=== PATIENT | female | born 1950 | race Caucasian/White ===

== ENCOUNTER 2018-08-31 11:42 | Emergency (ER) | payer MEDICARE ==
[2018-08-31] MEDS ORDERED: Penicillin VK TAB* 250 MG PO ONE (12:25)
[2018-08-31] MEDS ORDERED: Ketorolac INJ* 60 MG/2 ML VIAL IM ONE (12:26)
--- NOTE | 2018-08-31 12:28 | ED ---
Throat Pain/Nasal Congestion - HPI Summary HPI Summary: The patient is a 67 y/o F presenting to [facility] with a chief complaint of upper left dental pain starting a few weeks ago with recent worsening. She reports that she has an upcoming appointment with her dentist in three days, but the pain has been worsening. There is a filling in the area of pain that is still intact. Currently, the pain is rated 7-8/10 in severity. She denies trismus, swelling of tongue or lips, nausea, vomiting, and headaches. Hx of DM, HTN, OH. FHx of HTN, DM. Former smoker, occasional EtOH, no substance use. - History of Current Complaint Chief Complaint: EDDentalPain Time Seen by Provider: 08/31/18 12:19 Hx Obtained From: Patient Onset/Duration: Gradual Onset, Lasting Weeks, Still Present Severity: Moderate Cough: None - Allergies/Home Medications Allergies/Adverse Reactions: Allergies Allergy/AdvReac Type Severity Reaction Status Date / Time No Known Allergies Allergy Verified 08/31/18 11:50 PMH/Surg Hx/FS Hx/Imm Hx Endocrine/Hematology History: Reports: Hx Diabetes Cardiovascular History: Reports: Hx Hypertension, Hx Myocardial Infarction Denies: Hx Hypercholesterolemia - Surgical History Surgical History: None Surgery Procedure, Year, and Place: none Infectious Disease History: No Infectious Disease History: Denies: Traveled Outside the [place] in Last 30 Days - Family History Known Family History: Positive: Hypertension, Diabetes - Social History Alcohol Use: Occasionally Hx Substance Use: No Substance Use Type: Reports: None Hx Tobacco Use: Yes Smoking Status (MU): Former Smoker Review of Systems Positive: Dental Pain - left upper toothache, Other - NEGATIVE: trismus, swelling of tongue or lips Negative: Vomiting, Nausea Negative: Headache All Other Systems Reviewed And Are Negative: Yes Physical Exam - Summary Physical Exam Summary: VITAL SIGNS: Reviewed. GENERAL: Patient is a well-developed and nourished female who is lying comfortable in the stretcher. Patient is not in any acute respiratory distress. HEAD AND FACE: No signs of trauma. No ecchymosis, hematomas or skull depressions. No sinus tenderness. EYES: PERRLA, EOMI x 2, No injected conjunctiva, no nystagmus. EARS: Hearing grossly intact. Ear canals and tympanic membranes are within normal limits. MOUTH: Fracture of tooth 14 with tenderness at palpation. No abscess. Oropharynx otherwise within normal limits. NECK: Supple, trachea is midline, no adenopathy, no JVD, no carotid bruit, no c- spine tenderness, neck with full ROM. CHEST: Symmetric, no tenderness at palpation LUNGS: Clear to auscultation bilaterally. No wheezing or crackles. CVS: Regular rate and rhythm, S1 and S2 present, no murmurs or gallops appreciated. ABDOMEN: Soft, non-tender. No signs of distention. No rebound, no guarding, and no masses palpated. Bowel sounds are normal. EXTREMITIES: FROM in all major joints, no edema, no cyanosis or clubbing. NEURO: Alert and oriented x 3. No acute neurological deficits. Speech is normal and follows commands. SKIN: Dry and warm. Triage Information Reviewed: Yes Vital Signs On Initial Exam: Initial Vitals Temp Pulse Resp BP Pulse Ox 97.5 F 87 16 144/77 95 08/31/18 11:47 08/31/18 11:47 08/31/18 11:47 08/31/18 11:47 08/31/18 11:47 Vital Signs Reviewed: Yes Diagnostics - Vital Signs Vital Signs Temp Pulse Resp BP Pulse Ox 08/31/18 11:47 97.5 F 87 16 144/77 95 - Laboratory Lab Statement: Any lab studies that have been ordered have been reviewed, and results considered in the medical decision making process. Re-Evaluation - Re-Evaluation First Eval Re-Evaluation Time: 12:40 Change: Improved Comment: Her pain has improved after medication. We discussed discharge plan to keep dentist appt. EENT Course/Dx - Course Assessment/Plan: The patient is a 67 y/o F presenting to [facility] with a chief complaint of upper left dental pain starting a few weeks ago with recent worsening. She reports that she has an upcoming appointment with her dentist in three days, but the pain has been worsening. There is a filling in the area of pain that is still intact. Currently, the pain is rated 7-8/10 in severity. She denies trismus, swelling of tongue or lips, nausea, vomiting, and headaches. Hx of DM, HTN, OH. FHx of HTN, DM. Former smoker, occasional EtOH, no substance use. The patient was given Toradol for pain and penicillin for dental infection. The patient has an appointment with the dentist on September 04. She will be discharged home with follow-up with the dentist. Patient was instructed to return to the emergency department if she develops any trismus, she is unable to open her mouth, or any airway difficulties. She understands and agrees. She is hemodynamically stable alert and oriented 3. - Diagnoses Provider Diagnoses: Toothache Discharge - Sign-Out/Discharge Documenting (check all that apply): Patient Departure - Patient will be discharged home. Patient Received Moderate/Deep Sedation with Procedure: No - Discharge Plan Condition: Good Disposition: HOME Prescriptions: HYDROcodone/ACETAMIN 5-325 MG* [[place] 5-325 TAB*] 1 tab PO Q6H PRN #10 tab MDD 4 PRN Reason: Pain Penicillin VK TAB* [Penicillin VK 250 mg Tab*] 500 mg PO QID #40 tab Patient Education Materials: Toothache (ED) Referrals: Vandana Rabago MD [Primary Care Provider] - 3 Days Additional Instructions: Please take medications as prescribed. Follow up with your dentist on Tuesday at your scheduled appointment. RETURN TO THE EMERGENCY DEPARTMENT FOR ANY NEW OR WORSENING SYMPTOMS. - Billing Disposition and Condition Condition: GOOD Disposition: Home - Attestation Statements Document Initiated by Ezequiel: Yes Documenting Scribe: Taylor Buenrostro Provider For Whom Ezequiel is Documenting (Include Credential): Dr. Wilian De Guzman MD Scribe Attestation: Taylor Duran scribed for Dr. Wilian De Guzman MD on 09/01/18 at 2052. Scribe Documentation Reviewed: Yes Provider Attestation: The documentation as recorded by the Taylor damon accurately reflects the service I personally performed and the decisions made by me, Dr. Wilian De Guzman MD Status of Scribe Document: Viewed
[2018-08-31 12:43] VITALS: BP 134/70
== END 2018-08-31 12:41 | disposition home or self-care (01) ==
LOC: ED 11:42
DX: K08.89 Other specified disorders of teeth and supporting structures (principal); E11.9 Type 2 diabetes mellitus without complications; Z87.891 Personal history of nicotine dependence
CPT/HCPCS: 96372; 99282; A9270-GY; J1885

== ENCOUNTER 2023-08-11 21:15 | Inpatient (IN) ==
[2023-08-11 23:21] LABS: ABS Eosinophils 0.2 10^3/uL (0.0-0.5); ABS Lymphocytes 1.8 10^3/uL (1.0-4.8); ABS Monocytes 0.8 10^3/uL (0.0-0.9); ABS Neutrophils 8.6 10^3/uL (1.5-7.6); Eosinophil % 1.5 %; Hematocrit 35.9 % (35-45); Lymphocyte % 15.8 %; Mean Corpuscular Hemoglobin 28.5 pg (27-33); Mean Corpuscular Hgb Conc 33.4 g/dL (31-36); Mean Corpuscular Volume 85.2 fL (80-97); Platelet Count 287 10^3/uL (150-450); Red Blood Count 4.21 10^6/uL (3.63-4.92); Red Cell Distribution Width 13.8 % (12-17); White Blood Count 11.4 10^3/uL (3.8-11.8)
[2023-08-12 00:14] LABS: ALT 28 U/L (7-52); AST 20 U/L (13-39); Albumin 3.7 g/dL (3.2-5.2); Albumin/Globulin Ratio 1.1 (1-3); Alkaline Phosphatase 92 U/L (35-149); Anion Gap 8 mmol/L (2-16); Blood Urea Nitrogen 18 mg/dL (6-24); C Reactive Protein 276.74 mg/L (<8.01); CO2 Carbon Dioxide 26 mmol/L (22-32); Calcium 9.3 mg/dL (8.6-10.3); Chloride 97 mmol/L (101-111); Creatinine, Serum 0.71 mg/dL (0.51-0.95); Globulin 3.4 g/dL (2-4); Glucose 262 mg/dL (70-100); Lipase < 10 U/L (11.0-82.0); Potassium 4.1 mmol/L (3.5-5.0); Sodium 131 mmol/L (135-145); Total Bilirubin 0.3 mg/dL (0.2-1.0); Total Protein 7.1 g/dL (6.4-8.9); eGFR CKD-EPI 90.8 (>60)
[2023-08-12 00:20] LABS: Urine Appearance Clear; Urine Bilirubin Negative (Negative); Urine Blood Negative (Negative); Urine Color Yellow; Urine Glucose 3+ (>=300 mg/dL) (Negative); Urine Ketones 2+ (Negative); Urine Nitrite Negative (Negative); Urine Protein Trace (Negative); Urine Specific Gravity 1.022 (1.002-1.030); Urine Urobilinogen Negative (Negative)
[2023-08-12] MEDS: NS 0.9% 1000 ml BAG 1,000 ML IV ONE (00:37)
[2023-08-12 00:44] LABS: Urine Bacteria Absent /HPF (Absent); Urine Red Blood Cell Trace(0-2/hpf) /HPF (0-Trace); Urine Squamous Epithelial Cell Present /HPF (Absent); Urine White Blood Cell 1+(6-10/hpf) /HPF (0-Trace)
[2023-08-12] MEDS: Iodixanol (CONTRAST) 320 MG/ML 100 ML SDV IV ONE (00:53)
[2023-08-12] MEDS ORDERED: Dextrose 50% Syringe 50 ml 25 GM/50 ML SYRINGE IV PUSH PRN (02:18)
[2023-08-12] MEDS ORDERED: Albuterol HFA INHALER 8 gm MDI INH PRN (02:19)
[2023-08-12] MEDS: Piperacillin/Tazobac 3.375 BAG 3.375 GM/100 ML BAG IV ONE (02:20)
[2023-08-12] MEDS ORDERED: Zosyn per Pharmacy NOTE FOLLOW UP SCH (03:00)
[2023-08-12] MEDS: Insulin GLARGINE 100 un/ml 10 ml VIAL SUBCUT ONE ×2 (03:32→04:04)
[2023-08-12] MEDS: ZOSYN 3.375 GM Q8H per EXTENDED INFUSION IV SCH ×2 (06:12→17:57)
[2023-08-12 06:24] LABS: ABS Basophils 0.1 10^3/uL (0.0-0.1); ABS Eosinophils 0.2 10^3/uL (0.0-0.5); ABS Lymphocytes 1.5 10^3/uL (1.0-4.8); ABS Monocytes 0.8 10^3/uL (0.0-0.9); ABS Neutrophils 8.8 10^3/uL (1.5-7.6); Eosinophil % 1.5 %; Hematocrit 32.7 % (35-45); Hemoglobin 10.9 g/dL (11.5-14.3); Lymphocyte % 12.9 %; Mean Corpuscular Hemoglobin 28.3 pg (27-33); Mean Corpuscular Hgb Conc 33.4 g/dL (31-36); Mean Corpuscular Volume 84.8 fL (80-97); Mean Platelet Volume 8.3 fL (7.5-11.2); Platelet Count 279 10^3/uL (150-450); Red Blood Count 3.85 10^6/uL (3.63-4.92); Red Cell Distribution Width 13.7 % (12-17); White Blood Count 11.4 10^3/uL (3.8-11.8)
[2023-08-12 07:08] LABS: Albumin 3.3 g/dL (3.2-5.2); Albumin/Globulin Ratio 1.1 (1-3); Calcium 8.4 mg/dL (8.6-10.3); Creatinine, Serum 0.67 mg/dL (0.51-0.95); Globulin 3.1 g/dL (2-4); Potassium 4.3 mmol/L (3.5-5.0); Total Bilirubin 0.3 mg/dL (0.2-1.0); Total Protein 6.4 g/dL (6.4-8.9); eGFR CKD-EPI 93.4 (>60)
[2023-08-12] MEDS ORDERED: Aspirin EC 81 mg TAB.EC (enteric coated) PO SCH (09:00)
[2023-08-12] MEDS: fentaNYL 100 mcg/2 ml 50 MCG/ML VIAL ONE (16:49)
[2023-08-12] MEDS: Enoxaparin 40 MG/0.4 ML SYR SUBCUT SCH (18:03)
[2023-08-12] MEDS ORDERED: Insulin GLARGINE 100 un/ml 10 ml VIAL SUBCUT SCH ×3 (21:00)
[2023-08-12] MEDS: Insulin GLARGINE 100 un/ml 10 ml VIAL SUBCUT SCH (22:43)
[2023-08-13] MEDS: ZOSYN 3.375 GM Q8H per EXTENDED INFUSION IV SCH (01:59)
[2023-08-13 06:51] LABS: Hematocrit 33.6 % (35-45); Hemoglobin 11.3 g/dL (11.5-14.3); Mean Corpuscular Hemoglobin 28.7 pg (27-33); Mean Corpuscular Hgb Conc 33.7 g/dL (31-36); Mean Platelet Volume 8.2 fL (7.5-11.2); Platelet Count 314 10^3/uL (150-450); Red Blood Count 3.95 10^6/uL (3.63-4.92); Red Cell Distribution Width 14.1 % (12-17); White Blood Count 10.5 10^3/uL (3.8-11.8)
[2023-08-13 07:07] LABS: Calcium 8.7 mg/dL (8.6-10.3); Creatinine, Serum 0.68 mg/dL (0.51-0.95); Magnesium 1.8 mg/dL (1.9-2.7); Potassium 4.1 mmol/L (3.5-5.0); eGFR CKD-EPI 93.1 (>60)
[2023-08-13] MEDS: Magnesium Sulfate IV 1GM/100ML 1 GM/100 ML BAG IV ONE (09:26)
[2023-08-13] MEDS: Insulin GLARGINE 100 un/ml 10 ml VIAL SUBCUT SCH (22:19)
[2023-08-14 07:12] LABS: Calcium 8.4 mg/dL (8.6-10.3); Creatinine, Serum 0.62 mg/dL (0.51-0.95); Magnesium 1.8 mg/dL (1.9-2.7); Potassium 4.1 mmol/L (3.5-5.0); eGFR CKD-EPI 95.1 (>60)
[2023-08-14 07:18] LABS: ABS Eosinophils 0.2 10^3/uL (0.0-0.5); ABS Lymphocytes 1.3 10^3/uL (1.0-4.8); ABS Monocytes 0.6 10^3/uL (0.0-0.9); ABS Neutrophils 7.8 10^3/uL (1.5-7.6); Eosinophil % 2.1 %; Hematocrit 32.9 % (35-45); Mean Corpuscular Hemoglobin 28.5 pg (27-33); Mean Corpuscular Hgb Conc 33.3 g/dL (31-36); Mean Corpuscular Volume 85.7 fL (80-97); Mean Platelet Volume 8.1 fL (7.5-11.2); Platelet Count 296 10^3/uL (150-450); Red Blood Count 3.84 10^6/uL (3.63-4.92)
[2023-08-14] MEDS: Magnesium Sulfate 2 gm BAG 2 GM/50 ML BAG IVPB ONE (08:04)
[2023-08-14] MEDS ORDERED: Dextrose 50% Syringe 50 ml 25 GM/50 ML SYRINGE IV PUSH PRN (09:40)
[2023-08-15 06:13] LABS: Hematocrit 32.3 % (35-45); Hemoglobin 10.8 g/dL (11.5-14.3); Mean Corpuscular Hemoglobin 28.1 pg (27-33); Mean Corpuscular Hgb Conc 33.3 g/dL (31-36); Mean Corpuscular Volume 84.5 fL (80-97); Mean Platelet Volume 7.7 fL (7.5-11.2); Platelet Count 307 10^3/uL (150-450); Red Blood Count 3.83 10^6/uL (3.63-4.92); Red Cell Distribution Width 13.7 % (12-17); White Blood Count 9.1 10^3/uL (3.8-11.8)
[2023-08-15 06:57] LABS: Calcium 8.3 mg/dL (8.6-10.3); Creatinine, Serum 0.58 mg/dL (0.51-0.95); Magnesium 1.8 mg/dL (1.9-2.7); Potassium 4.2 mmol/L (3.5-5.0); eGFR CKD-EPI 96.7 (>60)
[2023-08-15] MEDS: Magnesium Sulfate 2 gm BAG 2 GM/50 ML BAG IVPB ONE (09:27)
[2023-08-16 06:19] LABS: ABS Eosinophils 0.3 10^3/uL (0.0-0.5); ABS Lymphocytes 1.7 10^3/uL (1.0-4.8); ABS Monocytes 0.5 10^3/uL (0.0-0.9); ABS Neutrophils 5.9 10^3/uL (1.5-7.6); Eosinophil % 3.4 %; Hemoglobin 11.2 g/dL (11.5-14.3); Lymphocyte % 20.1 %; Mean Corpuscular Hemoglobin 28.8 pg (27-33); Mean Corpuscular Volume 84.5 fL (80-97); Mean Platelet Volume 7.9 fL (7.5-11.2); Platelet Count 351 10^3/uL (150-450); Red Cell Distribution Width 13.6 % (12-17); White Blood Count 8.4 10^3/uL (3.8-11.8)
[2023-08-16] MEDS: Magnesium Sulfate 2 gm BAG 2 GM/50 ML BAG IVPB ONE (08:09)
[2023-08-16 13:47] VITALS: BP 117/62
== END 2023-08-16 17:40 | disposition home or self-care (01) | DRG 357 ==
LOC: EDHOLD 21:15 → ED 21:15 → SUATTDRO 08-12 01:38 → SSU 08-12 12:30 → MEDTELE 08-12 12:34
PROVIDERS: ADMIT Student in an Organized Health Care Education/Training Program; ATTEND Hospitalist